=== PATIENT | female | born 1980 | race Native Hawaiian/Other Pacific Islander ===

== ENCOUNTER 2016-11-17 14:11 | Emergency (ER) | payer MEDICAID ==
[~2016-11-17] VITALS: Ht 162.6 cm; Wt 61.7 kg
[2016-11-17] MEDS ORDERED: ONDA4TAB8 PO (14:21)
[2016-11-17] MEDS ORDERED: IBUP-1482 PO (14:21)
[2016-11-17] MEDS ORDERED: BUTA-1 PO (14:22)
[2016-11-17] MEDS ORDERED: PROMETHAZINE HCL 25 MG/1 ML VIAL IM ONE (14:30)
[2016-11-17] MEDS ORDERED: HYDROMORPHONE 1 MG/1 ML DISP.SYRIN IM ONE (14:30)
[2016-11-17 14:33] LABS: *BILIRUBIN,URIN NEGATIVE (NEGATIVE); *BLOOD, URINE 1+ (NEGATIVE); *COLOR,URINE YELLOW (YELLOW); *KETONES,URINE NEGATIVE (NEGATIVE); *PROTEIN,URINE TRACE (NEGATIVE); LEUKOCYTE ESTERASE ,URINE NEGATIVE (NEGATIVE); NITRITE, URINE NEGATIVE (NEGATIVE); PH,URINE 7.5 (5.0-8.0); UGLUCOSE NEGATIVE (NEGATIVE)
[2016-11-17 14:36] LABS: *URINE HCG, QUAL NEGATIVE (NEGATIVE)
[2016-11-17] MEDS ORDERED: HYDROMORPHONE 2 MG/1 ML DISP.SYRIN ONE (14:37)
[2016-11-17] MEDS ORDERED: PROMETHAZINE HCL 25 MG/1 ML VIAL ONE (14:37)
[2016-11-17 14:40] LABS: *CLARITY,URINE SLIGHTLY HAZY (CLEAR)
[2016-11-17 14:41] LABS: MUCUS,URINE MODERATE /LPF (0-FEW); SQUAMOUS EPITHELIAL CELL,UR MODERATE /HPF (NONE SEEN); WBC,URINE 0-3 /HPF (0-3)
--- NOTE | 2016-11-17 15:29 | NUR ---
Patient discharged to home in stable conditon. Written and verbal after care instructions given. Patient ANSD SO verbalize understanding of instructions.PT WHEEL CHAIRED OUT TO SO CAR IN FRONT OF HOSPITAL
[2016-11-17 15:30] VITALS: BP 121/89
== END 2016-11-17 15:31 | disposition home or self-care (01) ==
LOC: ER 14:11
DX: G43.909 Migraine, unspecified, not intractable, without status migrainosus (principal)
CPT/HCPCS: 70450; 84703; A4663; J1170; J2550

== ENCOUNTER 2016-11-29 19:42 | Emergency (ER) | payer MEDICAID ==
[~2016-11-29] VITALS: Ht 162.6 cm; Wt 61.2 kg
[~2016-11-29 19:42] MED LIST: BUTA-1 PO; IBUP-1482 PO; ONDA4TAB8 PO
[2016-11-29 20:31] LABS: *BILIRUBIN,URIN NEGATIVE (NEGATIVE); *BLOOD, URINE 3+ (NEGATIVE); *CLARITY,URINE CLOUDY (CLEAR); *KETONES,URINE NEGATIVE (NEGATIVE); *PROTEIN,URINE 2+ (NEGATIVE); *UROBILINOGEN,URINE 0.2 E.U./dl (NORMAL); LEUKOCYTE ESTERASE ,URINE NEGATIVE (NEGATIVE); NITRITE, URINE NEGATIVE (NEGATIVE); PH,URINE 5.5 (5.0-8.0); UGLUCOSE NEGATIVE (NEGATIVE)
[2016-11-29 20:33] LABS: *URINE HCG, QUAL NEGATIVE (NEGATIVE)
[2016-11-29 20:47] LABS: *COLOR,URINE Brown (YELLOW)
[2016-11-29 20:49] LABS: MUCUS,URINE MODERATE /LPF (0-FEW); RBC,URINE TNTC /HPF (0-3); SQUAMOUS EPITHELIAL CELL,UR MODERATE /HPF (NONE SEEN)
[2016-11-29] MEDS ORDERED: IV NORMAL SALINE 1000 ML BAG IV ONE (21:15)
[2016-11-29] MEDS ORDERED: HYDROMORPHONE 1 MG/1 ML DISP.SYRIN IV ONE (21:15)
[2016-11-29] MEDS ORDERED: ONDANSETRON 4 MG/2 ML VIAL IV ONE (21:15)
[2016-11-29] MEDS ORDERED: HYDROMORPHONE 1 MG/1 ML DISP.SYRIN ONE (21:30)
[2016-11-29] MEDS ORDERED: ONDANSETRON 4 MG/2 ML VIAL ONE ×2 (21:30→22:14)
[2016-11-29 21:44] LABS: BASOPHILS % (AUTO) 0.4 % (0.0-2.0); EOSINOPHILS # (AUTO) 0.2 K/uL (0.0-0.7); EOSINOPHILS % (AUTO) 1.8 % (0.0-7.0); HEMATOCRIT 28.1 % (37-47); HEMOGLOBIN 8.9 G/DL (12.0-16.0); LYMPHOCYTES # (AUTO) 2.5 K/uL (20.0-40.0); LYMPHOCYTES % (AUTO) 24.6 % (20.5-51.5); MEAN CORPUSCULAR HEMOGLOBIN 22.5 UUG (27.0-31.0); MEAN CORPUSCULAR HGB CONC 32 g/dL (32.0-37.0); MEAN CORPUSCULAR VOLUME 71.3 FL (81.0-99.0); MONOCYTES # (AUTO) 0.4 K/uL (2.0-10.0); MONOCYTES % (AUTO) 3.8 % (0.0-11.0); NEUTROPHILS # (AUTO) 7.2 K/uL (1.8-8.9); NEUTROPHILS % (AUTO) 69.4 % (38.5-71.5); PLATELET COUNT (AUTO) 194 K/UL (150-450); RED BLOOD CELL COUNT(AUTO) 3.94 MIL/UL (4.2-5.4); RED CELL DISTRIBUTION WIDTH 15.9 % (11.5-14.5); WHITE BLOOD COUNT (AUTO) 10.3 K/UL (4.0-11.2)
[2016-11-29 21:47] LABS: CALCIUM 8.7 mg/dL (8.5-10.1); CARBON DIOXIDE 26 mmol/L (21-32); CHLORIDE 105 mmol/L (98-107); CREATININE 0.8 mg/dL (0.6-1.3); GFR 81 mL/min (>60); GLUCOSE 92 mg/dL (74-106); SODIUM SERUM 141 mmol/L (136-145); UREA NITROGEN, BLOOD 15 mg/dL (7-18)
--- NOTE | 2016-11-29 21:49 | NUR ---
Patient to radiology for CT scan via gurney.
[2016-11-29 21:52] LABS: ALANINE AMINOTRANSFERASE 13 U/L (14-59); ALBUMIN 3.6 g/dL (3.4-5.0); ALKALINE PHOSPHATASE 40 U/L (50-136); ASPARTATE AMINOTRANSFERASE 14 U/L (15-37); BILIRUBIN,DIRECT < 0.1 mg/dL (0.0-0.2); BILIRUBIN,TOTAL 0.2 mg/dL (0.2-1.0); LIPASE 185 U/L (73-393); TOTAL PROTEIN, SERUM 7.2 g/dL (6.4-8.2)
--- NOTE | 2016-11-29 22:09 | NUR ---
Patient returned from radiology, reports pain is controlled and requests additional medication for nausea. ERMD notified, orders received.
[2016-11-29 22:29] LABS: BAND % (MANUAL) 1 % (0-10); EOSINOPHILS % (MANUAL) 2 % (0-8); LYMPHOCYTES % (MANUAL) 27 % (20-40); MONOCYTES % (MANUAL) 6 % (2-10); NEUTROPHILS % (MANUAL) 64 % (42-75)
[2016-11-29 22:30] LABS: ANISOCYTOSIS 1+; HYPOCHROMASIA 1+
[2016-11-29] MEDS ORDERED: ONDANSETRON IV *ER 4 MG/2 ML VIAL IV ONE (22:30)
[2016-11-29] MEDS ORDERED: METOCLOPRAMIDE HCL 10 MG/2 ML VIAL IV ONE (22:45)
[2016-11-29] MEDS ORDERED: METOCLOPRAMIDE HCL 10 MG/2 ML VIAL ONE (22:54)
--- NOTE | 2016-11-29 23:09 | NUR ---
Patient discharged to home in stable conditon. Written and verbal after care instructions given. Patient verbalizes understanding of instructions.
== END 2016-11-29 23:16 | disposition home or self-care (01) ==
LOC: ER 19:42
DX: D25.9 Leiomyoma of uterus, unspecified (principal); F10.20 Alcohol dependence, uncomplicated
CPT/HCPCS: 36415; 83690; 84703; 85025; A4663; J1170; J2405; J2765; J7030

== ENCOUNTER 2017-06-02 01:40 | Emergency (ER) | payer MEDICAID, OTHER ==
[~2017-06-02] VITALS: Ht 162.6 cm; Wt 49.9 kg
[~2017-06-02 01:40] MED LIST changes: +HYDROMORPHONE 1 MG/1 ML DISP.SYRIN IM ONE; +HYDROMORPHONE 2 MG/1 ML DISP.SYRIN ONE; -IBUP-1482 PO; +IBUP-1957 PO; +PROMETHAZINE HCL 25 MG/1 ML VIAL IM ONE; +PROMETHAZINE HCL 25 MG/1 ML VIAL ONE
--- NOTE | 2017-06-02 01:43 | NUR ---
Patient discharged to home in stable conditon WITH FAMILY TAKING PATIENT HOME. Written and verbal after care instructions given. Patient verbalizes understanding of instructions.PATIENT D/C'ED TO PRIVATE VEHICLE VIA WHEELCHAIR BY STAFF MEMBER
[2017-06-02 01:46] VITALS: BP 128/88
== END 2017-06-02 01:46 | disposition home or self-care (01) ==
LOC: ER 01:42
DX: D25.9 Leiomyoma of uterus, unspecified (principal)
CPT/HCPCS: 96372 ×2; 99284; A4663; J1170; J2550